=== PATIENT | male | born 1950 | race Caucasian/White ===

== ENCOUNTER → 2019-05-09 | Outpatient (CLI) | payer MEDICARE, OTHER ==
--- NOTE | 2019-05-09 11:37 | KCIC ---
PQRS Compliance Statement: One or more of the following individualized dose reduction techniques were utilized for this examination: 1. Automated exposure control 2. Adjustment of the mA and/or kV according to patient size 3. Use of iterative reconstruction technique CT head without contrast 05/09/2019 10:30 AM INDICATION: Hearing loss left ear COMPARISON: None available TECHNIQUE: Multiple axial CT images of the head were obtained from skull base through the vertex without intravenous contrast. FINDINGS: Head: Ventricles, sulci and basal cisterns are prominent compatible with mild general cerebral volume loss. There is dense calcified plaque involving the right ICA terminus and right M1 segment of the middle cerebral artery. There is no hydrocephalus. Morris-white matter differentiation is normal. There is no acute intracranial hemorrhage. There is no mass, mass effect or midline shift. Posterior fossa is normal in appearance. Visualized portions of the orbits are normal. Paranasal sinuses are well aerated. Mastoid air cells are well aerated. Scalp and calvaria are normal. IMPRESSION: No acute intracranial hemorrhage. Mild generalized cerebral volume loss. Intracranial atherosclerotic changes are present. There is persistent clinical concern for internal auditory canal and abnormality, further evaluation with temporal bone CT or MRI brain and IAC is recommended. Electronically signed by: Malika Washington MD (05/09/2019 11:34 AM) [id number]
== END | disposition home or self-care (01) ==
LOC: KCIC CT 09:49
PROVIDERS: ATTEND Family Medicine
DX: I67.2 Cerebral atherosclerosis (principal); H91.92 Unspecified hearing loss, left ear
CPT/HCPCS: 70450